=== PATIENT | male | born 1965 | race Caucasian/White ===

== ENCOUNTER 2018-08-06 20:13 | Emergency (ER) | payer BC ==
[2018-08-06 20:34] VITALS: BP 188/92
[2018-08-06] MEDS ORDERED: MAG HYDROX/AL HYDROX/SIMETH SUSP 30 ML UDCUP PO ONE (21:59)
[2018-08-06] MEDS ORDERED: METOCLOPRAMIDE HCL ORAL SOLN 10 MG/10 ML UDCUP PO ONE (21:59)
[2018-08-06] MEDS ORDERED: LIDOCAINE 2% VISCOUS SOLN 20 ML UDCUP PO ONE (21:59)
--- NOTE | 2018-08-06 22:00 | ER Document Report ---
ED Medical Screen (RME) - General Chief Complaint: Chest Pain Stated Complaint: CHEST PAIN Time Seen by Provider: 08/06/18 21:58 Notes: Patient is a 53-year-old male presents to the emergency department for generalized epigastric abdominal pain. Patient states he noticed this pain started approximately 2 days ago after eating was thought to be on top of sushi. Patient states he typically takes omeprazole for his indigestion states the ome prazole he is taking helps for a little bit but then the pain comes back worse. Patient states he does have an extensive history of acid indigestion. Patient's denying any vomiting or bloody stools. GENERAL: Alert, interacts well. No acute distress. HEAD: Normocephalic, atraumatic. HEART: Regular rate and rhythm. No murmur ABDOMEN: Soft, generalized epigastric abdominal pain. Non-distended. Bowel sounds present in all 4 quadrants. No McBurney's point tenderness, no Coleman sign noted EXTREMITIES: Moves all 4 extremities spontaneously. No edema, normal radial and dorsalis pedis pulses bilaterally. No cyanosis. SKIN: Warm, dry, normal turgor. No rashes or lesions noted. I have greeted and performed a rapid initial assessment of this patient. A comprehensive ED assessment and evaluation of the patient, analysis of test results and completion of the medical decision making process will be conducted by additional ED providers. TRAVEL OUTSIDE OF THE [place] IN LAST 30 DAYS: No - Related Data Allergies/Adverse Reactions: No Known Allergies Allergy (Unverified 08/06/18 20:20) Past Medical History - Immunizations Immunizations up to date: Yes Hx Diphtheria, Pertussis, Tetanus Vaccination: Yes Physical Exam - Vital signs Vitals: Temp Pulse Resp BP Pulse Ox 98.9 F 88 18 188/92 H 94 08/06/18 20:33 08/06/18 20:33 08/06/18 20:33 08/06/18 20:33 08/06/18 20:33 Course - Vital Signs Vital signs: Temp Pulse Resp BP Pulse Ox 98.9 F 88 18 188/92 H 94 08/06/18 20:33 08/06/18 20:33 08/06/18 20:33 08/06/18 20:33 08/06/18 20:33
--- NOTE | 2018-08-06 22:44 | RADIOLOGY REPORT (SQ) ---
EXAM DESCRIPTION: XR ABDOMEN SUPINE AND ERECT WITH CHEST (ABD ACUTE SERIES) COMPLETED DATE/TME: 08/06/2018 21:58 CLINICAL HISTORY: 53 years, Male, epigastric pain COMPARISON: None. NUMBER OF VIEWS: 4 TECHNIQUE: Upright chest with supine and erect views of the abdomen LIMITATIONS: None. FINDINGS: The heart size is normal. Lungs are clear. No pneumothorax. No free air under the hemidiaphragms. The bowel gas pattern is nonspecific. No free air. Large amount stool in the colon. Round calcifications projecting over the right renal shadow are suspicious for renal calculi. IMPRESSION: Negative chest. Abundant stool in the colon. Possible right renal calculi copyright 2010 [employer]- All Rights Reserved
[2018-08-06 22:59] LABS: ABSOLUTE BASOPHILS # (AUTO) 0.1 10^3/uL (0.0-0.2); ABSOLUTE EOSINOPHILS # (AUTO) 0.3 10^3/uL (0.0-0.6); ABSOLUTE LYMPHOCYTES (AUTO) 3.2 10^3/uL (0.5-4.7); ABSOLUTE MONOCYTES (AUTO) 0.8 10^3/uL (0.1-1.4); ABSOLUTE NEUT (AUTO) 6.1 10^3/uL (1.7-8.2); EOSINOPHILS % (AUTO) 2.6 % (0-6); HEMATOCRIT 45.1 % (37.9-51.0); HEMOGLOBIN 16.1 g/dL (13.5-17.0); LYMPHOCYTES % (AUTO) 30.7 % (13-45); MEAN CORPUSCULAR HEMOGLOBIN 31.6 pg (27.0-33.4); MEAN CORPUSCULAR HGB CONC 35.7 g/dL (32.0-36.0); MEAN CORPUSCULAR VOLUME 89 fl (80-97); MONOCYTES % (AUTO) 7.3 % (3-13); PLATELET COUNT 300 10^3/uL (150-450); RED BLOOD COUNT 5.09 10^6/uL (4.35-5.55); RED CELL DISTRIBUTION WIDTH 13.2 % (11.5-14.0); SEGMENTED NEUTROPHILS % (AUTO) 58.4 % (42-78); TOTAL CELLS COUNTED % (AUTO) 100 %; WHITE BLOOD COUNT 10.5 10^3/uL (4.0-10.5)
[2018-08-06 23:21] LABS: ALANINE AMINOTRANSFERASE 46 U/L (21-72); ALBUMIN 4.7 g/dL (3.5-5.0); ALKALINE PHOSPHATASE 87 U/L (38-126); ANION GAP 9 (5-19); ASPARTATE AMINO TRANSFERASE 30 U/L (17-59); BILIRUBIN,DIRECT 0.2 mg/dL (0.0-0.4); BILIRUBIN,TOTAL 0.5 mg/dL (0.2-1.3); BLOOD UREA NITROGEN 14 mg/dL (7-20); CALCIUM 9.9 mg/dL (8.4-10.2); CARBON DIOXIDE 29 mmol/L (22-30); CHLORIDE 101 mmol/L (98-107); GLUCOSE 111 mg/dL (75-110); LIPASE 81.1 U/L (23-300); POTASSIUM 3.9 mmol/L (3.6-5.0); SODIUM 139.4 mmol/L (137-145); TOTAL PROTEIN 8.1 g/dL (6.3-8.2)
--- NOTE | 2018-08-07 01:28 | EKG REPORT ---
SEVERITY:- NORMAL ECG - SINUS RHYTHM : Confirmed by: Annabelle Garcia MD 07-Aug-2018 01:28:05
== END 2018-08-06 23:55 | disposition left against medical advice (07) ==
LOC: ER 20:13
DX: K30 Functional dyspepsia (principal); Z79.899 Other long term (current) drug therapy; Z53.20 Procedure and treatment not carried out because of patient's decision for unspecified reasons
CPT/HCPCS: 93005; 99281; 36415; 83690; 85025; 80053; 84484; 74022; 93010; J3490